=== PATIENT | male | born 1950 | race Caucasian/White ===

== ENCOUNTER 2016-09-16 16:28 | Emergency (ER) | payer BC, MEDICARE ==
[2016-09-16 16:36] VITALS: BP 138/80; PULSE 78; RESP 20; TEMP 98.1
--- NOTE | 2016-09-16 17:43 | ED ---
Skin/Abscess/FB HPI - General Chief complaint: Skin/Abscess/Foreign Body Stated complaint: Sores on Leg Time Seen by Provider: 09/16/16 17:31 Source: patient, RN notes reviewed Mode of arrival: ambulatory Limitations: no limitations - History of Present Illness Initial comments: 66-year-old male presents emergency Department with chief complaint of rashes right leg. Patient states started a few days ago. Patient states is slightly painful but states he noticed some sores in his right groin and on his right lower leg. Patient is never had any like this in the past. Denies any new soaps or lotions or detergents. Patient states he has not been taking anything for this. - Related Data Home Medications Medication Instructions Recorded Confirmed Metoprolol Succinate [Toprol XL] 25 mg PO BID 02/25/14 01/14/16 Theophylline 12 Hour [Collin-Dur] 300 mg PO BID 02/25/14 01/14/16 Tiotropium [place] [Spiriva] 1 cap INHALATION RT-DAILY 02/25/14 01/14/16 Albuterol Sulfate [Proair Hfa] 1 - 2 puff INHALATION RT-Q6H 01/06/16 01/14/16 Arformoterol Tartrate [Brovana] 15 mcg INHALATION RT-BID 01/14/16 01/14/16 Budesonide [Pulmicort] 0.5 mg INHALATION RT-BID 01/14/16 01/14/16 Docusate [Colace] 100 mg PO DAILY 01/14/16 01/14/16 Previous Rx's Medication Instructions Recorded valACYclovir HCL [Valtrex] 1,000 mg PO Q8HR #30 tab 09/16/16 Allergies Allergy/AdvReac Type Severity Reaction Status Date / Time No Known Allergies Allergy Verified 09/16/16 16:36 Review of Systems ROS Statement: Those systems with pertinent positive or pertinent negative responses have been documented in the HPI. ROS Other: All systems not noted in ROS Statement are negative. 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 Skin graft in the right buttock, right hand surgery in the past. Past Anesthesia/Blood Transfusion Reactions: No Reported Reaction Past Psychological History: No Psychological Hx Reported Smoking Status: Former smoker Past Alcohol Use History: None Reported Past Drug Use History: None Reported - Past Family History Father Family Medical History: Dementia Son(s) Family Medical History: No Reported History Mother Family Medical History: No Reported History General Exam Limitations: no limitations General appearance: alert, in no apparent distress Respiratory exam: Present: normal lung sounds bilaterally. Absent: respiratory distress, wheezes, rales, rhonchi, stridor Cardiovascular Exam: Present: regular rate, normal rhythm, normal heart sounds. Absent: systolic murmur, diastolic murmur, rubs, gallop, clicks Extremities exam: Present: other (Right leg there are erythematous vesicular papular regions noted in the right groin, right calf region following the dermatome consistent with herpes zoster) Course Vital Signs 09/16/16 16:34 Temperature 98.1 F Pulse Rate 78 Respiratory 20 Rate Blood Pressure 138/80 O2 Sat by Pulse 99 Oximetry Medical Decision Making - Medical Decision Making 66-year-old male present emergency department for rash to his right leg. Patient has shingles. Patient was started on Valtrex. Return parameters were discussed. Disposition Clinical Impression: Herpes zoster Disposition: HOME SELF-CARE Condition: Stable Instructions: Shingles (ED) Additional Instructions: Please return to the Emergency Department if symptoms worsen or any other concerns. Prescriptions: valACYclovir HCL [Valtrex] 1,000 mg PO Q8HR #30 tab Time of Disposition: 17:43
== END 2016-09-16 18:26 | disposition home or self-care (01) ==
LOC: EC 16:28
DX: B02.9 Zoster without complications (principal); I10 Essential (primary) hypertension; J45.909 Unspecified asthma, uncomplicated; J43.9 Emphysema, unspecified; Z87.891 Personal history of nicotine dependence; Z86.19 Personal history of other infectious and parasitic diseases; Z79.899 Other long term (current) drug therapy
CPT/HCPCS: 99282

== ENCOUNTER 2016-09-19 09:07 | Emergency (ER) | payer MEDICARE ==
[2016-09-19 09:50] VITALS: RESP 18
--- NOTE | 2016-09-19 10:08 | ED ---
General Adult HPI - General Chief complaint: Shortness of Breath Stated complaint: allergic reaction Time Seen by Provider: 09/19/16 09:44 Source: patient, RN notes reviewed Mode of arrival: ambulatory Limitations: no limitations - History of Present Illness Initial comments: Patient is a 66-year-old male presents to the emergency room for evaluation of general malaise. Patient states he was here on Saturday and diagnosed with shingles. Patient states he started taking Valcyclovir on Saturday. Patient states yesterday he began feeling fever-javan with chills, sore throat and productive cough. Patient states he is coughing up green phlegm. Patient does state he has a history of emphysema/asthma. Patient denies currently smoking. Patient denies chest pain or shortness of breath. Patient denies headache or dizziness. Patient denies abdominal pain. Patient denies nausea or vomiting. - Related Data Home Medications Medication Instructions Recorded Confirmed Metoprolol Succinate [Toprol XL] 25 mg PO BID 02/25/14 09/19/16 Tiotropium [place] [Spiriva] 1 cap INHALATION RT-DAILY 02/25/14 09/19/16 Albuterol Sulfate [Proair Hfa] 1 - 2 puff INHALATION RT-Q6H 01/06/16 09/19/16 Arformoterol Tartrate [Brovana] 15 mcg INHALATION RT-BID 01/14/16 09/19/16 Budesonide [Pulmicort] 0.5 mg INHALATION RT-BID 01/14/16 09/19/16 Docusate [Colace] 100 mg PO DAILY 01/14/16 09/19/16 Montelukast [Singulair] 10 mg PO HS 09/16/16 09/19/16 Previous Rx's Medication Instructions Recorded valACYclovir HCL [Valtrex] 1,000 mg PO Q8HR #30 tab 09/16/16 Allergies Allergy/AdvReac Type Severity Reaction Status Date / Time No Known Allergies Allergy Verified 09/19/16 09:51 Review of Systems ROS Statement: Those systems with pertinent positive or pertinent negative responses have been documented in the HPI. ROS Other: All systems not noted in ROS Statement are negative. 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 Skin graft in the right buttock, right hand surgery in the past. Past Anesthesia/Blood Transfusion Reactions: No Reported Reaction Past Psychological History: No Psychological Hx Reported Smoking Status: Former smoker Past Alcohol Use History: None Reported Past Drug Use History: None Reported - Past Family History Father Family Medical History: Dementia Son(s) Family Medical History: No Reported History Mother Family Medical History: No Reported History General Exam - General Exam Comments Initial Comments: Sitting in exam room, no acute distress. Limitations: no limitations General appearance: alert, in no apparent distress Head exam: Present: atraumatic, normocephalic, normal inspection Eye exam: Present: normal appearance ENT exam: Present: normal exam, normal oropharynx, mucous membranes moist, TM's normal bilaterally, normal external ear exam Neck exam: Present: normal inspection Respiratory exam: Present: normal lung sounds bilaterally. Absent: respiratory distress Cardiovascular Exam: Present: regular rate, normal rhythm, normal heart sounds GI/Abdominal exam: Present: soft, normal bowel sounds. Absent: distended, tenderness, guarding, rebound, rigid Extremities exam: Present: normal inspection Right Upper Leg exam: Absent: normal inspection (erythematous vesicular papular lesions over groin and calf area) Back exam: Present: normal inspection Neurological exam: Present: alert, oriented X3, CN II-XII intact, normal gait Psychiatric exam: Present: normal affect, normal mood Skin exam: Present: warm, dry, intact, normal color. Absent: rash Course Vital Signs 09/19/16 09/19/16 09/19/16 09:10 09:48 12:27 Temperature 98.2 F 98.4 F Pulse Rate 89 78 Respiratory 20 18 18 Rate Blood Pressure 108/58 110/68 O2 Sat by Pulse 98 99 Oximetry Medical Decision Making - Medical Decision Making Patient is a 66-year-old male presents emergency room for evaluation of cough and chills. Labs show no concerning findings. Chest x-ray negative for any acute findings. Influenza is negative. Advised patient to continue taking Tylenol and Motrin and to continue with Valcyclovir for treatment of Shingles. Patient states he understands everything that was discussed with him. Return parameters discussed. Case discussed with Dr. Avendaño. - Lab Data Result diagrams: 09/19/16 09:35 09/19/16 09:35 Lab Results 09/19/16 09/19/16 09/19/16 Range/Units 09:35 09:35 10:15 WBC 5.4 (3.8-10.6) k/uL RBC 4.76 (4.30-5.90) m/uL Hgb 15.0 (13.0-17.5) gm/dL Hct 45.5 (39.0-53.0) % MCV 95.5 (80.0-100.0) fL MCH 31.5 (25.0-35.0) pg MCHC 33.0 (31.0-37.0) g/dL RDW 13.6 (11.5-15.5) % Plt Count 137 L (150-450) k/uL Neutrophils % 72 % Lymphocytes % 14 % Monocytes % 10 % Eosinophils % 0 % Basophils % 1 % Neutrophils # 3.9 (1.3-7.7) k/uL Lymphocytes # 0.7 L (1.0-4.8) k/uL Monocytes # 0.5 (0-1.0) k/uL Eosinophils # 0.0 (0-0.7) k/uL Basophils # 0.0 (0-0.2) k/uL Sodium 139 (137-145) mmol/L Potassium 4.3 (3.5-5.1) mmol/L Chloride 101 (98-107) mmol/L Carbon Dioxide 26 (22-30) mmol/L Anion Gap 12 mmol/L BUN 17 (9-20) mg/dL Creatinine 0.65 L (0.66-1.25) mg/dL Est GFR (MDRD) Af Amer >60 (>60 ml/min/1.73 sqM) Est GFR (MDRD) Non-Af >60 (>60 ml/min/1.73 sqM) Glucose 94 (74-99) mg/dL Calcium 8.9 (8.4-10.2) mg/dL Total Bilirubin 1.2 (0.2-1.3) mg/dL AST 20 (17-59) U/L ALT 26 (21-72) U/L Alkaline Phosphatase 75 (38-126) U/L Total Protein 7.1 (6.3-8.2) g/dL Albumin 4.1 (3.5-5.0) g/dL Influenza Type A RNA Not Detected (Not Detectd) Influenza Type B (PCR) Not Detected (Not Detectd) - Radiology Data Radiology results: report reviewed, image reviewed Disposition Clinical Impression: Upper respiratory infection, Shingles Disposition: HOME SELF-CARE Condition: Good Instructions: Shingles (ED), Upper Respiratory Infection (ED) Additional Instructions: Continue with valacyclovir. Alternate Tylenol and Motrin as needed for fever/ discomfort. Please follow up with primary care provider in 24-48 hours for reevaluation. If any new symptom arises or symptoms worsen, return to ER as soon as possible. Referrals: Christine Escamilla MD [Primary Care Provider] - 1-2 days Time of Disposition: 12:09
[2016-09-19 10:46] LABS: ALT 26 U/L (21-72); AST 20 U/L (17-59); Alkaline Phosphatase 75 U/L (38-126); Anion Gap 12 mmol/L; Blood Urea Nitrogen 17 mg/dL (9-20); Calcium 8.9 mg/dL (8.4-10.2); Carbon Dioxide 26 mmol/L (22-30); Chloride 101 mmol/L (98-107); Glucose 94 mg/dL (74-99); Non-African American GFR(MDRD) >60 (>60 ml/min/1.73 sqM); Potassium 4.3 mmol/L (3.5-5.1); Sodium 139 mmol/L (137-145); Total Bilirubin 1.2 mg/dL (0.2-1.3); Total Protein 7.1 g/dL (6.3-8.2)
--- NOTE | 2016-09-19 10:52 | XR ---
EXAMINATION TYPE: XR chest 2V DATE OF EXAM: 09/19/2016 10:32 AM COMPARISON: 01/14/2016 HISTORY: Shortness of breath TECHNIQUE: Frontal and lateral views of the chest are obtained. FINDINGS: Scattered senescent parenchymal changes noted. Hyperinflation compatible with COPD. No evidence for infiltrate. No evidence for atelectasis. Heart size is stable. Mediastinal structures are stable and grossly unremarkable. No evidence for hilar prominence. Degenerative changes dorsal spine. IMPRESSION: 1. No evidence for acute pulmonary disease.
[2016-09-19 11:08] LABS: Basophils % (A) 1 %; CH 31.7; CHCM 33.4; Eosinophils % (A) 0 %; HCT 45.5 % (39.0-53.0); HDW 2.68; Luc # (Auto) 0.22; Luc % (Auto) 4; Lymphocytes # (A) 0.7 k/uL (1.0-4.8); Lymphocytes % (A) 14 %; MCH 31.5 pg (25.0-35.0); MCV 95.5 fL (80.0-100.0); Mean Platelet Volume 6.8; Monocytes # (A) 0.5 k/uL (0-1.0); Monocytes % (A) 10 %; Neutrophils # (A) 3.9 k/uL (1.3-7.7); Neutrophils % (A) 72 %; RBC 4.76 m/uL (4.30-5.90); RDW 13.6 % (11.5-15.5); WBC 5.4 k/uL (3.8-10.6); WBC (Perox) 5.79
[2016-09-19 12:29] VITALS: BP 110/68; PULSE 78; TEMP 98.4
== END 2016-09-19 12:27 | disposition home or self-care (01) ==
LOC: EC 09:07
DX: J06.9 Acute upper respiratory infection, unspecified (principal); B02.9 Zoster without complications; I10 Essential (primary) hypertension; J45.909 Unspecified asthma, uncomplicated; J43.9 Emphysema, unspecified; Z87.891 Personal history of nicotine dependence; Z79.51 Long term (current) use of inhaled steroids; Z79.899 Other long term (current) drug therapy; Z86.79 Personal history of other diseases of the circulatory system; Z98.890 Other specified postprocedural states
CPT/HCPCS: 36415; 71020; 80053; 85025; 87502; 99285

== ENCOUNTER 2016-10-03 07:20 | Emergency (ER) | payer BC, MEDICARE ==
--- NOTE | 2016-10-03 08:57 | ED ---
General Adult HPI - General Chief complaint: Recheck/Abnormal Lab/Rx Stated complaint: Shingles,congestion Time Seen by Provider: 10/03/16 08:12 Source: patient, RN notes reviewed Mode of arrival: ambulatory Limitations: no limitations - History of Present Illness Initial comments: Patient is 66-year-old male who presents emergency room today with a recheck. He states that he was diagnosed she was approximately 2 weeks ago did take Valtrex for this. States that the rash to the right inside of his leg has improved. States nontender. States some areas are scabbed over but appears to be doing well. Patient states that he was also diagnosed with a upper respiratory infection is had cough congestion over the last 2 weeks. Does admit that at times she's having sputum production. States he wanted to be rechecked for this as well. He does admit that the cough is somewhat improved. He denies any other complaints. Patient denies any recent fever, chills, shortness of breath, chest pain, back pain, abdominal pain, nausea or vomiting, numbness or tingling, dysuria or hematuria, constipation or diarrhea, headaches or visual changes, or any other complaints. - Related Data Home Medications Medication Instructions Recorded Confirmed Metoprolol Succinate [Toprol XL] 25 mg PO BID 02/25/14 10/03/16 Tiotropium [place] [Spiriva] 1 cap INHALATION RT-DAILY 02/25/14 10/03/16 Albuterol Sulfate [Proair Hfa] 1 - 2 puff INHALATION RT-Q6H 01/06/16 10/03/16 Arformoterol Tartrate [Brovana] 15 mcg INHALATION RT-BID 01/14/16 10/03/16 Budesonide [Pulmicort] 0.5 mg INHALATION RT-BID 01/14/16 10/03/16 Docusate [Colace] 100 mg PO DAILY 01/14/16 10/03/16 Montelukast [Singulair] 10 mg PO HS 09/16/16 10/03/16 Cephalexin [Keflex] 500 mg PO TID 10/03/16 10/03/16 Previous Rx's Medication Instructions Recorded guaiFENesin 400 mg PO Q4-6H #30 tablet 10/03/16 Allergies Allergy/AdvReac Type Severity Reaction Status Date / Time No Known Allergies Allergy Verified 10/03/16 08:38 Review of Systems ROS Statement: Those systems with pertinent positive or pertinent negative responses have been documented in the HPI. ROS Other: All systems not noted in ROS Statement are negative. 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 Skin graft in the right buttock, right hand surgery in the past. Past Anesthesia/Blood Transfusion Reactions: No Reported Reaction Past Psychological History: No Psychological Hx Reported Smoking Status: Former smoker Past Alcohol Use History: None Reported Past Drug Use History: None Reported - Past Family History Father Family Medical History: Dementia Son(s) Family Medical History: No Reported History Mother Family Medical History: No Reported History General Exam - General Exam Comments Initial Comments: General: The patient is awake and alert, in no distress, and does not appear acutely ill. Eye: Pupils are equal, round and reactive to light, extra-ocular movements are intact. No nystagmus. There is normal conjunctiva bilaterally. No signs of icterus. Ears, nose, mouth and throat: There are moist mucous membranes and no oral lesions. Neck: The neck is supple, there is no tenderness or JVD. Cardiovascular: There is a regular rate and rhythm. No murmur, rub or gallop is appreciated. Respiratory: Lungs are clear to auscultation, respirations are non-labored, breath sounds are equal. No wheezes, stridor, rales, or rhonchi. Gastrointestinal: Soft, non-distended, non-tender abdomen without masses or organomegaly noted. There is no rebound or guarding present. No CVA tenderness. Bowel sounds are unremarkable. Musculoskeletal: Normal ROM, no tenderness. Strength 5/5. Sensation intact. Pulses equal bilaterally 2+. Neurological: A&O x 3. CN II-XII intact, There are no obvious motor or sensory deficits. Coordination appears grossly intact. Speech is normal. Skin: Skin is warm and dry and no rashes or lesions are noted. Psychiatric: Cooperative, appropriate mood & affect, normal judgment. Limitations: no limitations Course Vital Signs 10/03/16 07:34 Temperature 98.1 F Pulse Rate 68 Respiratory 18 Rate Blood Pressure 121/70 O2 Sat by Pulse 97 Oximetry Medical Decision Making - Medical Decision Making Patient reexamined at this time shows no signs of distress. Chest x-ray is negative for any evidence of pneumonia. Patient will be given a prescription for guaifenesin for his cough and congestion. Advised follow-up with his family doctor. It was discussed about possible steroids at this time he has declined steroids. Patient will be discharged home and advised to return if any symptoms increase or worsen. Disposition Clinical Impression: Upper respiratory infection Disposition: HOME SELF-CARE Condition: Good Instructions: Upper Respiratory Infection (ED) Additional Instructions: Please use medication as discussed. Please follow-up with family doctor in the next 2 days of symptoms have not improved. Please return to emergency room if the symptoms increase or worsen or for any other concerns. Prescriptions: guaiFENesin 400 mg PO Q4-6H #30 tablet Time of Disposition: 09:43
--- NOTE | 2016-10-03 09:03 | XR ---
EXAMINATION TYPE: XR chest 2V DATE OF EXAM: 10/03/2016 8:54 AM COMPARISON: 09/19/2016 TECHNIQUE: PA and lateral views submitted. HISTORY: Cough FINDINGS: The lungs are clear and there is no pneumothorax, pleural effusion, or focal pneumonia. Hyperinflat ion noted. Biapical pleural thickening seen. Degenerative change of the spine. No overt failure. Stra ndy suprahilar density in the right is stable dating back to 2014. IMPRESSION: 1. No acute process. Correlate for COPD
[2016-10-03 10:03] VITALS: BP 119/74; PULSE 65; RESP 16; TEMP 97.5
== END 2016-10-03 10:07 | disposition home or self-care (01) ==
LOC: EC 07:20
DX: J06.9 Acute upper respiratory infection, unspecified (principal); J45.909 Unspecified asthma, uncomplicated; J43.9 Emphysema, unspecified; I10 Essential (primary) hypertension; Z87.891 Personal history of nicotine dependence; Z79.51 Long term (current) use of inhaled steroids; Z79.899 Other long term (current) drug therapy
CPT/HCPCS: 71020; 99283

== ENCOUNTER → 2017-07-02 | Outpatient (CLI) | payer MEDICARE ==
--- NOTE | 2017-07-02 16:08 | XR ---
EXAMINATION TYPE: XR chest 2V DATE OF EXAM: 07/02/2017 COMPARISON: Prior chest x-ray 10/03/2016 HISTORY: Shortness of breath, emphysema TECHNIQUE: Frontal and lateral views of the chest are obtained on 3 images. FINDINGS: There is no pleural effusion or pneumothorax seen. Difficult to exclude basilar airspace d isease. The cardiac silhouette size is within normal limits. Aorta is dense and tortuous. Apical pleu ral thickening is noted. Emphysematous changes are noted, there is hyperinflation of the lungs. There is an underlying scoliosis. Surgical clips superimposed over the right upper chest as on prior. The osseous structures are intact. IMPRESSION: Emphysema. Difficult to exclude pneumonia. Follow-up suggested.
== END ==
LOC: RADXRMAIN 13:36
PROVIDERS: ATTEND Internal Medicine Pulmonary Disease
DX: J43.9 Emphysema, unspecified (principal)
CPT/HCPCS: 71046

== ENCOUNTER → 2017-07-26 | Outpatient (CLI) | payer MEDICARE ==
[2017-07-26 08:58] LABS: Blood Urea Nitrogen 22 mg/dL (9-20)
--- NOTE | 2017-07-26 10:55 | CT ---
EXAMINATION TYPE: CT chest w con DATE OF EXAM: 07/26/2017 COMPARISON: 03/10/2015 HISTORY: Patient complains of pneumonia, SOB, and displays unproductive cough. CT DLP: 209.2 mGycm, Automated exposure control for dose reduction was used. CONTRAST: Performed injected with 100 mL of Omnipaque 300. TECHNIQUE: Axial images were obtained at 5 mm thick sections. Reconstructed images are reviewed on [employer] computer in the coronal plane. FINDINGS: Portion of the thyroid visualized is normal. A 0.9 cm right supraclavicular lymph node may be present. Extensive emphysematous changes are present at the lung apices. Some scarring in the left posterior l hugh apex appears stable. Some scarring within the anterior right upper lobe is stable. No suspicious nodular densities are evident. No significant interval changes evident within the lung fitzgerald. No enlarged mediastinal or hilar adenopathy is evident. The ascending aorta diameter at the level o f the main pulmonary artery is 3.7 cm. The main pulmonary artery diameter at the bifurcation is 2.5 cm. Aortic arch and its posterior aspect is transverse dimension of 3.[address] sections are obtained through the upper abdomen. There is some fusiform prominence of the distal most visualized abdominal aorta measuring 2.7 cm in AP dimension. Vascular calcifications with in the aorta. Upper abdomen is otherwise unremarkable. Scoliosis is present. Degenerative disc changes in the lower thoracic spine are evident. IMPRESSIONS: 1. Extensive emphysematous change, similar to 2015. 2. No acute pulmonary process. 3. Aortic ectasia discussed above thoracic aorta and proximal abdominal aorta within the [id number]-mg-[id number] w.
== END | disposition home or self-care (01) ==
LOC: RADCTMAIN 08:19
PROVIDERS: ATTEND Nurse Practitioner Family
DX: J43.9 Emphysema, unspecified (principal); I77.819 Aortic ectasia, unspecified site
CPT/HCPCS: 82565; 84520; 71260; 36415; Q9967

== ENCOUNTER → 2017-08-03 | Outpatient (CLI) | payer MEDICARE ==
[2017-08-03 07:59] LABS: Appearance,Urine Clear (Clear); Bilirubin,Urine Negative (Negative); Blood,Urine Negative (Negative); Color,Urine Yellow; Glucose,Urine (UA) Negative (Negative); Ketones,Urine Negative (Negative); Leukocyte Esterase,Urine Negative (Negative); Nitrite,Urine Negative (Negative); Protein,Urine Trace (Negative); Specific Gravity,Urine 1.022 (1.001-1.035)
[2017-08-03 08:00] LABS: Basophils # (A) 0.1 k/uL (0-0.2); Basophils % (A) 1 %; Eosinophils # (A) 0.1 k/uL (0-0.7); Eosinophils % (A) 1 %; HCT 51.4 % (39.0-53.0); HGB 16.3 gm/dL (13.0-17.5); Lymphocytes # (A) 0.4 k/uL (1.0-4.8); Lymphocytes % (A) 4 %; MCH 31.4 pg (25.0-35.0); MCHC 31.8 g/dL (31.0-37.0); MCV 98.9 fL (80.0-100.0); Mean Platelet Volume 7.2; Monocytes # (A) 0.3 k/uL (0-1.0); Monocytes % (A) 3 %; Neutrophils # (A) 8.5 k/uL (1.3-7.7); Neutrophils % (A) 91 %; Platelet Count 173 k/uL (150-450); WBC 9.4 k/uL (3.8-10.6)
[2017-08-03 11:05] LABS: ALT 30 U/L (21-72); AST 30 U/L (17-59); Alkaline Phosphatase 88 U/L (38-126); Anion Gap 14 mmol/L; Blood Urea Nitrogen 16 mg/dL (9-20); Calcium 9.8 mg/dL (8.4-10.2); Carbon Dioxide 26 mmol/L (22-30); Chloride 102 mmol/L (98-107); Cholesterol 212 mg/dL (<200); Glucose 114 mg/dL (74-99); HDL Cholesterol 69 mg/dL (40-60); LDL Cholesterol,Calculated 130 mg/dL (0-99); Potassium 4.8 mmol/L (3.5-5.1); Sodium 142 mmol/L (137-145); Total Bilirubin 0.9 mg/dL (0.2-1.3); Total Protein 7.3 g/dL (6.3-8.2); Triglycerides 66 mg/dL (<150)
[2017-08-03 11:10] LABS: Vitamin D 25 Hydroxy 8.7 ng/mL (30.0-100.0)
[2017-08-03 11:17] LABS: Albumin 4.5 g/dL (3.5-5.0)
[2017-08-03 11:21] LABS: T4, Free (Free Thyroxine) 1.14 ng/dL (0.78-2.19)
[2017-08-03 11:35] LABS: Prostate Specific Antigen 0.63 ng/mL (0.00-4.00)
[2017-08-03 13:47] LABS: Hemoglobin A1C 5.7 % (4.0-6.0)
== END | disposition home or self-care (01) ==
LOC: LABWHC1 07:26
PROVIDERS: ATTEND Family Medicine
DX: Z00.00 Encounter for general adult medical examination without abnormal findings (principal); E11.36 Type 2 diabetes mellitus with diabetic cataract
CPT/HCPCS: 36415; 80053; 80061; 81003; 82043; 82306; 82570; 82607; 83036; 84153; 84439; 84443; 85025

== ENCOUNTER → 2017-09-06 | Outpatient (CLI) | payer MEDICARE ==
--- NOTE | 2017-09-06 20:25 | ECHOF ---
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 This was a technically good study. The left ventricular size is normal. There is borderline concentric left ventricular hypertrophy. Overall left ventricular systolic function is normal with, an EF between 55 - 60 %. The right ventricle is normal in size and function. Normal LA size by volume 22+/-6 ml/m2. RA appears enlarged. Aortic valve is trileaflet and is mildly thickened. There is no evidence of aortic regurgitation. There is no evidence of aortic stenosis. The mitral valve leaflets are mildly thickened. There is trace to mild mitral regurgitation. Mild tricuspid regurgitation present. Right ventricular systolic pressure is normal at < 35 mmHg. There is no evidence of pulmonary hypertension. The pulmonic valve was not well visualized. The aortic root size is normal. Normal inferior vena cava with normal inspiratory collapse consistent with estimated right atrial pre ssure of 5 mmHg. There is a small pericardial effusion is located near the right ventricle. CONCLUSIONS -------- 1. Sinus rhythm. 2. This was a technically good study. 3. The left ventricular size is normal. 4. There is borderline concentric left ventricular hypertrophy. 5. Overall left ventricular systolic function is normal with, an EF between 55 - 60 %. 6. Normal LA size by volume 22+/-6 ml/m2. 7. RA appears enlarged. 8. Aortic valve is trileaflet and is mildly thickened. 9. The mitral valve leaflets are mildly thickened. 10. There is trace to mild mitral regurgitation. 11. Mild tricuspid regurgitation present. 12. Right ventricular systolic pressure is normal at < 35 mmHg. 13. There is no evidence of pulmonary hypertension. 14. The pulmonic valve was not well visualized. 15. The aortic root size is normal. 16. There is a small pericardial effusion is located near the right ventricle. SENIOR SOFTWARE MANAGER: Ever Coronel RDCS
== END | disposition home or self-care (01) ==
LOC: RADECHMAIN 16:16
PROVIDERS: ATTEND Family Medicine
DX: I08.3 Combined rheumatic disorders of mitral, aortic and tricuspid valves (principal); I27.21 Secondary pulmonary arterial hypertension
CPT/HCPCS: 93306

== ENCOUNTER 2017-09-29 08:46 | Emergency (ER) | payer MEDICARE ==
[2017-09-29 08:50] VITALS: BP 171/91; PULSE 78; RESP 20; TEMP 98
[2017-09-29] MEDS ORDERED: MAGNESIUM CITRATE 296 ML BOTTLE PO ONE (09:00)
--- NOTE | 2017-09-29 09:07 | ED ---
General Adult HPI - General Chief complaint: Abdominal Pain Stated complaint: Constipated Time Seen by Provider: 09/29/17 08:52 Source: patient, RN notes reviewed Mode of arrival: ambulatory Limitations: no limitations - History of Present Illness Initial comments: Patient 67-year-old male presenting to the emergency room with a chief complaint of constipation. Patient states that he had a bowel movement yesterday was feeling fine. Woke up this morning unable have bowel movement. States that he did give himself a fleets enema and has still not had any relief. Denies any abdominal pain. He admits that he just feels pressure like he has to go to the bathroom. Patient does admit he was able to urinate approximately 20 minutes ago without difficulty. Patient denies any other complaints or symptoms. He states he has suffered from constipation in the past but is been some time. Patient denies any other complaints currently. Patient denies any recent fever, chills, shortness of breath, chest pain, back pain, abdominal pain, nausea or vomiting, numbness or tingling, dysuria or hematuria, diarrhea, headaches or visual changes, or any other complaints. - Related Data Home Medications Medication Instructions Recorded Confirmed Metoprolol Succinate [Toprol XL] 25 mg PO BID 02/25/14 10/03/16 Tiotropium [place] [Spiriva] 1 cap INHALATION RT-DAILY 02/25/14 10/03/16 Albuterol Sulfate [Proair Hfa] 1 - 2 puff INHALATION RT-Q6H 01/06/16 10/03/16 Arformoterol Tartrate [Brovana] 15 mcg INHALATION RT-BID 01/14/16 10/03/16 Budesonide [Pulmicort] 0.5 mg INHALATION RT-BID 01/14/16 10/03/16 Docusate [Colace] 100 mg PO DAILY 01/14/16 10/03/16 Montelukast [Singulair] 10 mg PO HS 09/16/16 10/03/16 Cephalexin [Keflex] 500 mg PO TID 10/03/16 10/03/16 Previous Rx's Medication Instructions Recorded guaiFENesin 400 mg PO Q4-6H #30 tablet 10/03/16 Allergies Allergy/AdvReac Type Severity Reaction Status Date / Time No Known Allergies Allergy Verified 09/29/17 08:50 Review of Systems ROS Statement: Those systems with pertinent positive or pertinent negative responses have been documented in the HPI. ROS Other: All systems not noted in ROS Statement are negative. 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 Skin graft in the right buttock, right hand surgery in the past. Past Anesthesia/Blood Transfusion Reactions: No Reported Reaction Past Psychological History: No Psychological Hx Reported Smoking Status: Former smoker Past Alcohol Use History: None Reported Past Drug Use History: None Reported - Past Family History Father Family Medical History: Dementia Son(s) Family Medical History: No Reported History Mother Family Medical History: No Reported History General Exam - General Exam Comments Initial Comments: General: The patient is awake and alert, in no distress, and does not appear acutely ill. Eye: Pupils are equal, round and reactive to light, extra-ocular movements are intact. No nystagmus. There is normal conjunctiva bilaterally. No signs of icterus. Ears, nose, mouth and throat: There are moist mucous membranes and no oral lesions. Neck: The neck is supple, there is no tenderness or JVD. Cardiovascular: There is a regular rate and rhythm. No murmur, rub or gallop is appreciated. Respiratory: Lungs are clear to auscultation, respirations are non-labored, breath sounds are equal. No wheezes, stridor, rales, or rhonchi. Gastrointestinal: Soft, non-distended, non-tender abdomen without masses or organomegaly noted. There is no rebound or guarding present. No CVA tenderness. Musculoskeletal: Normal ROM, no tenderness. Strength 5/5. Sensation intact. Pulses equal bilaterally 2+. Neurological: A&O x 3. CN II-XII intact, There are no obvious motor or sensory deficits. Coordination appears grossly intact. Speech is normal. Skin: Skin is warm and dry and no rashes or lesions are noted. Psychiatric: Cooperative, appropriate mood & affect, normal judgment. Limitations: no limitations Course Vital Signs 09/29/17 08:48 Temperature 98.0 F Pulse Rate 78 Respiratory 20 Rate Blood Pressure 171/91 O2 Sat by Pulse 96 Oximetry - Reevaluation(s) Reevaluation #1: 09/29/17 09:07 It was discussed with patient about further testing with labs and urinalysis along with an x-ray. Patient has declined all these. He states he does not feel that these are necessary. He states he feels that he just needs an enema. He is refusing any other testing at this time. Medical Decision Making - Medical Decision Making 67-year-old male presenting for constipation. Patient refused any other testing. Patient was given enema and was able have large bowel movement. States feeling much better at this time. Patient discharged home. Disposition Clinical Impression: Constipation Disposition: HOME SELF-CARE Condition: Good Instructions: Constipation (ED) Additional Instructions: Please follow-up with family doctor in the next 2 days of symptoms have not improved. Please return to emergency room if the symptoms increase or worsen or for any other concerns. Referrals: Christine Escamilla MD [Primary Care Provider] - 1-2 days Time of Disposition: 09:51
== END 2017-09-29 09:59 | disposition home or self-care (01) ==
LOC: EC 08:46
DX: K59.00 Constipation, unspecified (principal); J44.9 Chronic obstructive pulmonary disease, unspecified; I10 Essential (primary) hypertension; Z95.5 Presence of coronary angioplasty implant and graft; Z79.51 Long term (current) use of inhaled steroids; Z79.899 Other long term (current) drug therapy; Z87.891 Personal history of nicotine dependence
CPT/HCPCS: 99283

== ENCOUNTER → 2017-10-08 | Outpatient (CLI) | payer MEDICARE | END | disposition home or self-care (01) | LOC: LABWHC1 16:27 | PROVIDERS: ATTEND Family Medicine | DX: R05 Cough (principal) | CPT/HCPCS: 87070; 87205 ==

== ENCOUNTER → 2017-11-04 | Outpatient (CLI) | payer MEDICARE ==
[~2017-11-04] MED LIST: REGADENOSON 0.4 MG/5 ML SYRINGE IV ONE
--- NOTE | 2017-11-04 10:49 | NM ---
EXAMINATION TYPE: NM stress lexiscan cardiolite DATE OF EXAM: 11/04/2017 COMPARISON: NONE HISTORY: TECHNIQUE: After the intravenous administration of 10.29 mCi Tc 99m Sestamibi - Cardiolite resting S PECT images acquired 45 minutes post injection. The patient received 0.4mg Lexiscan, 25.9 mCi Tc 99m Sestamibi - Stress images obtained [address] injection FINDINGS: Review of stress and rest SPECT images demonstrates no distinct perfusion abnormality. Gated analysi s shows normal wall motion with an estimated left ventricular ejection fraction of 61 %. IMPRESSION: No scintigraphic evidence for reversible ischemia.
--- NOTE | 2017-11-04 11:09 | EST ---
EXERCISE STRESS DATE OF SERVICE: 11/04/2017 AGE: 67 SEX: M HT: 73" WT: 150 PROTOCOL: Lexiscan Cardiolite Stress Test HEART RATE REST: 59 BLOOD PRESSURE REST: 119/70 MAXIMUM HEART RATE ACHIEVED: 79 MAXIMUM BLOOD PRESSURE: 119/70 85% MPHR: 132 100% MPHR: 153 INDICATIONS: Chest pain. CLINICAL INFORMATION: Baseline rhythm is a sinus mechanism, rate 59, normal axis, RSR prime. Baseline blood pressure 119/70 mmHg. Patient received and injection of Lexiscan. Electrocardiograph monitoring revealed occasional PVCs. There was no evidence of diagnostic ischemic ST deviation. Cardiolite was injected per protocol. CONCLUSION: 1. Nondiagnostic electrocardiogram stress testing. 2. Nuclear images will be reported separately. MMODL / IJN: [id number] /
== END | disposition home or self-care (01) ==
LOC: RADNMMAIN 07:57
PROVIDERS: ATTEND Family Medicine
DX: R07.9 Chest pain, unspecified (principal)
CPT/HCPCS: 93017; 78452; A9500; J2785

== ENCOUNTER → 2017-12-17 | Outpatient (CLI) | payer MEDICARE ==
[2017-12-17 07:36] LABS: Basophils % (A) 1 %; Eosinophils # (A) 0.2 k/uL (0-0.7); Eosinophils % (A) 3 %; HCT 53.7 % (39.0-53.0); HGB 17.4 gm/dL (13.0-17.5); Lymphocytes # (A) 1.6 k/uL (1.0-4.8); Lymphocytes % (A) 25 %; MCH 31.6 pg (25.0-35.0); MCHC 32.4 g/dL (31.0-37.0); MCV 97.7 fL (80.0-100.0); Mean Platelet Volume 6.5; Monocytes # (A) 0.5 k/uL (0-1.0); Monocytes % (A) 8 %; Neutrophils # (A) 3.8 k/uL (1.3-7.7); Neutrophils % (A) 62 %; Platelet Count 176 k/uL (150-450); RBC 5.49 m/uL (4.30-5.90); RDW 13.6 % (11.5-15.5); WBC 6.2 k/uL (3.8-10.6)
[2017-12-17 07:47] LABS: ALT 40 U/L (21-72); AST 38 U/L (17-59); Albumin 4.8 g/dL (3.5-5.0); Alkaline Phosphatase 69 U/L (38-126); Anion Gap 13 mmol/L; Blood Urea Nitrogen 21 mg/dL (9-20); Calcium 9.6 mg/dL (8.4-10.2); Carbon Dioxide 29 mmol/L (22-30); Chloride 101 mmol/L (98-107); Cholesterol 174 mg/dL (<200); Creatine Kinase 106 U/L (55-170); Glucose 84 mg/dL (74-99); HDL Cholesterol 68 mg/dL (40-60); LDL Cholesterol,Calculated 91 mg/dL (0-99); Magnesium 2.1 mg/dL (1.6-2.3); Sodium 143 mmol/L (137-145); Total Bilirubin 0.6 mg/dL (0.2-1.3); Total Protein 7.5 g/dL (6.3-8.2); Triglycerides 73 mg/dL (<150); Uric Acid 6.3 mg/dL (3.5-8.5)
[2017-12-17 08:02] LABS: T4, Free (Free Thyroxine) 0.87 ng/dL (0.78-2.19)
[2017-12-17 08:28] LABS: Potassium 4.9 mmol/L (3.5-5.1)
[2017-12-17 11:43] LABS: Alpha Fetoprotein, Tumor Mkr <2.5 ng/mL (0.0-7.9); Hemoglobin A1C 5.4 % (4.0-6.0)
[2017-12-17 12:12] LABS: Hepatitis C IgG Antibody Reactive (Non-Reactive)
== END | disposition home or self-care (01) ==
LOC: LABWHC1 06:50
PROVIDERS: ATTEND Family Medicine
DX: E11.36 Type 2 diabetes mellitus with diabetic cataract (principal); I27.21 Secondary pulmonary arterial hypertension; B19.20 Unspecified viral hepatitis C without hepatic coma; J44.9 Chronic obstructive pulmonary disease, unspecified
CPT/HCPCS: 36415; 80053; 80061; 82105; 82378; 82550; 82607; 83036; 83735; 83880; 84439; 84443; 84550; 85025; 86803

== ENCOUNTER → 2017-12-18 | Outpatient (CLI) | payer MEDICARE ==
[2017-12-19 14:46] LABS: HCV Quant Log <1.08 (<1.08); HCV Quantitative Result <12 IU/mL (<12)
== END ==
LOC: LABWHC1 14:14
PROVIDERS: ATTEND Family Medicine
DX: B19.20 Unspecified viral hepatitis C without hepatic coma (principal)
CPT/HCPCS: 36415; 87522

== ENCOUNTER → 2018-03-14 | Outpatient (CLI) | payer MEDICARE ==
--- NOTE | 2018-03-15 07:44 | ECHOF ---
Referral Reason:I31.3 Pericardial effusion (noninflammatory) MEASUREMENTS -------- HEIGHT: 185.4 cm WEIGHT: 67.6 kg BP: RVIDd: 3.1 cm (< 3.3) IVSd: 1.0 cm (0.6 - 1.1) LVIDd: 3.4 cm (3.9 - 5.3) LVPWd: 1.0 cm (0.6 - 1.1) IVSs: 1.3 cm LVIDs: 2.4 cm LVPWs: 1.3 cm LAESV Index (A-L): 19.58 ml/m Ao Diam: 3.3 cm (2.0 - 3.7) AV Cusp: 1.9 cm (1.5 - 2.6) LA Diam: 3.2 cm (2.7 - 3.8) MV EXCURSION: 13.362 mm (> 18.000) MV EF SLOPE: 28 mm/s (70 - 150) EPSS: 0.4 cm MV E Darrell: 0.64 m/s MV DecT: 216 ms MV A Darrell: 0.83 m/s MV E/A Ratio: 0.77 RAP: 5.00 mmHg RVSP: 25.41 mmHg FINDINGS -------- Sinus rhythm. This was a technically adequate study. The left ventricular size is normal. Left ventricular wall thickness is normal. Overall left vent ricular systolic function is normal with, an EF between 55 - 60 %. The right ventricle is mildly enlarged. Normal LA size by volume 22+/-6 ml/m2. RA appears enlarged. Aortic valve is trileaflet and is mildly thickened. There is no evidence of aortic regurgitation. There is no evidence of aortic stenosis. The mitral valve leaflets are mildly thickened. There is trace to mild mitral regurgitation. Trace tricuspid regurgitation present. Right ventricular systolic pressure is normal at < 35 mmHg. There is no evidence of pulmonary hypertension. The pulmonic valve was not well visualized. The aortic root size is normal. Normal inferior vena cava with normal inspiratory collapse consistent with estimated right atrial pre ssure of 5 mmHg. There is no pericardial effusion. CONCLUSIONS -------- 1. Sinus rhythm. 2. This was a technically adequate study. 3. The left ventricular size is normal. 4. Left ventricular wall thickness is normal. 5. Overall left ventricular systolic function is normal with, an EF between 55 - 60 %. 6. The right ventricle is mildly enlarged. 7. Normal LA size by volume 22+/-6 ml/m2. 8. RA appears enlarged. 9. Aortic valve is trileaflet and is mildly thickened. 10. The mitral valve leaflets are mildly thickened. 11. There is trace to mild mitral regurgitation. 12. Trace tricuspid regurgitation present. 13. Right ventricular systolic pressure is normal at < 35 mmHg. 14. There is no evidence of pulmonary hypertension. 15. The pulmonic valve was not well visualized. 16. The aortic root size is normal. 17. There is no pericardial effusion. NOVELTY TWISTER TENDER: Ever Ibarra RDCS
== END | disposition home or self-care (01) ==
LOC: RADECHMAIN 16:13
PROVIDERS: ATTEND Family Medicine
DX: I08.0 Rheumatic disorders of both mitral and aortic valves (principal)
CPT/HCPCS: 93306

== ENCOUNTER → 2018-05-01 | Outpatient (CLI) | payer MEDICARE ==
[2018-05-01 08:23] LABS: Basophils # (A) 0.1 k/uL (0-0.2); Basophils % (A) 1 %; Eosinophils # (A) 0.2 k/uL (0-0.7); Eosinophils % (A) 2 %; HCT 49.4 % (39.0-53.0); HGB 15.8 gm/dL (13.0-17.5); Lymphocytes # (A) 1.5 k/uL (1.0-4.8); Lymphocytes % (A) 21 %; MCH 32.2 pg (25.0-35.0); MCHC 31.9 g/dL (31.0-37.0); MCV 100.9 fL (80.0-100.0); Macrocytosis Slight; Mean Platelet Volume 6.4; Monocytes # (A) 0.5 k/uL (0-1.0); Monocytes % (A) 7 %; Neutrophils # (A) 4.7 k/uL (1.3-7.7); Neutrophils % (A) 67 %; Platelet Count 180 k/uL (150-450); WBC 7.1 k/uL (3.8-10.6)
[2018-05-01 08:33] LABS: Appearance,Urine Clear (Clear); Bilirubin,Urine Negative (Negative); Blood,Urine Negative (Negative); Color,Urine Yellow; Glucose,Urine (UA) Negative (Negative); Ketones,Urine Negative (Negative); Leukocyte Esterase,Urine Negative (Negative); Nitrite,Urine Negative (Negative); Protein,Urine Negative (Negative); Specific Gravity,Urine 1.012 (1.001-1.035); Urobilinogen,Urine <2.0 mg/dL (<2.0)
[2018-05-01 11:05] LABS: Albumin 4.4 g/dL (3.80-4.90); Albumin/Globulin Ratio 2.59 (1.20-2.10); Anion Gap 10.4 mmol/L (4.00-12.00); Calcium 9.7 mg/dL (8.7-10.3); Carbon Dioxide 26.6 mmol/L (21.6-31.8); Globulin 1.7 g/dL (2.1-3.7); Potassium 4.4 mmol/L (3.5-5.5); Total Bilirubin 0.4 mg/dL (0.2-1.2); Total Protein 6.1 g/dL (6.2-8.2)
[2018-05-01 11:13] LABS: Vitamin D 25 Hydroxy 48.6 ng/mL (30.0-100.0)
[2018-05-01 11:14] LABS: T4, Free (Free Thyroxine) 1.2 ng/dL (0.80-1.80)
== END ==
LOC: LABWHC1 07:15
PROVIDERS: ATTEND Family Medicine
DX: E11.36 Type 2 diabetes mellitus with diabetic cataract (principal); B37.81 Candidal esophagitis; J44.9 Chronic obstructive pulmonary disease, unspecified; E78.5 Hyperlipidemia, unspecified
CPT/HCPCS: 36415; 80053; 80061; 81003; 82043; 82306; 82570; 82607; 84153; 84439; 84443; 85025

== ENCOUNTER → 2018-05-26 | Outpatient (CLI) | payer MEDICARE ==
--- NOTE | 2018-05-26 16:40 | XR ---
EXAMINATION TYPE: XR chest 2V DATE OF EXAM: 05/26/2018 COMPARISON: Prior chest x-ray 07/02/2017 HISTORY: Asthma, cough and congestion TECHNIQUE: Frontal and lateral views of the chest are obtained. FINDINGS: Prominent lung volumes suggest underlying COPD, apical lucency compatible with emphysema, there is apical pleural thickening. The aorta is dense and tortuous. Cardiac mediastinal silhouette, pulmonary vascularity and sean are stable. Some interstitial densities at the lung bases are again no chandler. Basilar density is noted more conspicuous on the lateral exam but stable. IMPRESSION: No acute cardiopulmonary process. If pneumonia is suspected then CT chest may be of bene fit.
== END ==
LOC: RADXRMAIN 14:54
PROVIDERS: ATTEND Family Medicine
DX: J45.909 Unspecified asthma, uncomplicated (principal)
CPT/HCPCS: 71046

== ENCOUNTER → 2018-06-05 | Outpatient (CLI) | payer MEDICARE ==
[2018-06-05 08:39] LABS: Blood Urea Nitrogen 20 mg/dL (9-20)
--- NOTE | 2018-06-05 10:52 | CT ---
CT CHEST FOR PULMONARY EMBOLISM. EXAMINATION TYPE: CT angio chest DATE OF EXAM: 06/05/2018 INDICATION: Severe persistent asthma CT DLP: 478 mGycm, Automated exposure control for dose reduction was used. CONTRAST: Patient injected with 100 ml mL of Isovue 370. COMPARISON: 07/26/2017 TECHNIQUE: CT of the chest is performed on a spiral scan at 2 mm thick sections. Study is performed with intravenous contrast timed for evaluation for pulmonary embolism. This will limit additional po rtions of the evaluation. 3-D MIP images reconstructed by the technologist are reviewed on the compu ter in the coronal and sagittal planes. FINDINGS: No persistent filling defects are evident to suggest an acute pulmonary embolism. No mediastinal or hilar adenopathy enlarged by CT criteria is evident. The ascending aorta diameter at the level of the main pulmonary artery is 3.8 cm. The main pulmonary artery diameter at the bifur cation is 2.1 cm. The proximal posterior aortic arch is slightly prominent 3.4 cm versus 2.8 cm the m ain aorta. This is stable from comparison. Some scarring is at the apices. Extensive bilateral emphysematous changes are present. Limited CT section through the upper abdomen are unremarkable. IMPRESSIONS: 1. No acute pulmonary embolism. 2. Extensive emphysematous changes. 3. Mild prominence proximal descending thoracic aorta.
== END | disposition home or self-care (01) ==
LOC: RADCTMAIN 07:10
PROVIDERS: ATTEND Family Medicine
DX: J43.9 Emphysema, unspecified (principal)
CPT/HCPCS: 82565; 84520; 71275; Q9967

== ENCOUNTER → 2018-08-06 | Outpatient (CLI) | payer MEDICARE ==
[2018-08-06 08:00] LABS: Basophils # (A) 0.1 k/uL (0-0.2); Basophils % (A) 1 %; Eosinophils # (A) 0.2 k/uL (0-0.7); Eosinophils % (A) 5 %; HCT 51.4 % (39.0-53.0); HGB 16.8 gm/dL (13.0-17.5); Lymphocytes # (A) 0.7 k/uL (1.0-4.8); Lymphocytes % (A) 15 %; MCH 32.9 pg (25.0-35.0); MCHC 32.7 g/dL (31.0-37.0); MCV 100.5 fL (80.0-100.0); Macrocytosis Slight; Monocytes # (A) 0.6 k/uL (0-1.0); Monocytes % (A) 13 %; Neutrophils # (A) 3.1 k/uL (1.3-7.7); Neutrophils % (A) 63 %; Platelet Count 166 k/uL (150-450); RBC 5.11 m/uL (4.30-5.90); RDW 13.7 % (11.5-15.5); WBC 4.9 k/uL (3.8-10.6)
[2018-08-06 11:30] LABS: Albumin 4.7 g/dL (3.80-4.90); Albumin/Globulin Ratio 2.61 (1.60-3.17); Calcium 9.8 mg/dL (8.7-10.3); Globulin 1.8 g/dL (1.6-3.3); LDL Cholesterol,Calculated 78.6 mg/dL (0.0-131.0); Potassium 4.5 mmol/L (3.5-5.5); Total Bilirubin 0.7 mg/dL (0.3-1.2); Total Protein 6.5 g/dL (6.2-8.2); Uric Acid 7.7 mg/dL (3.7-8.7); VLDL Calculation 10.4 mg/dL (5.00-40.00)
[2018-08-06 15:17] LABS: Hemoglobin A1C 5.7 % (4.0-6.0)
== END | disposition home or self-care (01) ==
LOC: LABWHC1 07:04
PROVIDERS: ATTEND Family Medicine
DX: Z00.01 Encounter for general adult medical examination with abnormal findings (principal); E78.5 Hyperlipidemia, unspecified; J45.41 Moderate persistent asthma with (acute) exacerbation; E11.69 Type 2 diabetes mellitus with other specified complication; I10 Essential (primary) hypertension
CPT/HCPCS: 36415; 80053; 80061; 83036; 84439; 84443; 84550; 85025

== ENCOUNTER 2018-12-06 09:19 | Emergency (ER) | payer MEDICARE ==
[2018-12-06 09:23] VITALS: TEMP 97.8
[2018-12-06] MEDS ORDERED: IPRATROPIUM-ALBUTEROL 3 ML NEB INHALATION STA (09:31)
[2018-12-06 09:45] VITALS: RESP 22
--- NOTE | 2018-12-06 09:47 | XR ---
EXAMINATION TYPE: XR chest 2V DATE OF EXAM: 12/06/2018 HISTORY: cough. REFERENCE: Previous study dated 05/26/2018. FINDINGS: The lungs are overinflated but clear. Pleural spaces are clear. Heart size is normal. IMPRESSION: COPD.
[2018-12-06 09:59] VITALS: PULSE 68
[2018-12-06] MEDS ORDERED: predniSONE 50 MG TAB PO STA (10:28)
[2018-12-06 10:33] VITALS: BP 128/83
[2018-12-06] MEDS ORDERED: predniSONE 20 MG TAB PO STA (10:36)
--- NOTE | 2018-12-06 10:37 | ED ---
General Adult HPI - General Chief complaint: Upper Respiratory Infection Stated complaint: Cough/lung pain Time Seen by Provider: 12/06/18 09:23 Source: patient, RN notes reviewed Mode of arrival: ambulatory Limitations: no limitations - History of Present Illness Initial comments: This is a 68-year-old male with a history of COPD and emphysema states he's had a cough with yellow phlegm he has some exertional dyspnea. He's been using his medications home without much good results. He states he did see his doctor alert and awake was started on 40 mg prednisone daily this is not really help the. He denies any chest pain he has had some rhinorrhea some sore throat he is not on any antibiotics currently. Is no other complaints at this time denies any palpitations. - Related Data Home Medications Medication Instructions Recorded Confirmed Metoprolol Succinate [Toprol XL] 25 mg PO BID 02/25/14 10/03/16 Tiotropium [place] [Spiriva] 1 cap INHALATION RT-DAILY 02/25/14 10/03/16 Albuterol Sulfate [Proair Hfa] 1 - 2 puff INHALATION RT-Q6H 01/06/16 10/03/16 Arformoterol Tartrate [Brovana] 15 mcg INHALATION RT-BID 01/14/16 10/03/16 Budesonide [Pulmicort] 0.5 mg INHALATION RT-BID 01/14/16 10/03/16 Docusate [Colace] 100 mg PO DAILY 01/14/16 10/03/16 Montelukast [Singulair] 10 mg PO HS 09/16/16 10/03/16 Cephalexin [Keflex] 500 mg PO TID 10/03/16 10/03/16 Previous Rx's Medication Instructions Recorded guaiFENesin 400 mg PO Q4-6H #30 tablet 10/03/16 Doxycycline [Vibramycin] 100 mg PO BID #20 cap 12/06/18 Allergies Allergy/AdvReac Type Severity Reaction Status Date / Time No Known Allergies Allergy Verified 12/06/18 09:23 Review of Systems ROS Statement: Those systems with pertinent positive or pertinent negative responses have been documented in the HPI. ROS Other: All systems not noted in ROS Statement are negative. 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 Skin graft in the right buttock, right hand surgery in the past. Past Anesthesia/Blood Transfusion Reactions: No Reported Reaction Past Psychological History: No Psychological Hx Reported Smoking Status: Former smoker Past Alcohol Use History: None Reported Past Drug Use History: None Reported - Past Family History Father Family Medical History: Dementia Son(s) Family Medical History: No Reported History Mother Family Medical History: No Reported History General Exam - General Exam Comments Initial Comments: This is a well-developed well-nourished awake alert oriented times 3 male Limitations: no limitations General appearance: alert, in no apparent distress Head exam: Present: atraumatic, normocephalic, normal inspection Eye exam: Present: normal appearance, PERRL, EOMI. Absent: scleral icterus, conjunctival injection, periorbital swelling ENT exam: Present: normal exam, mucous membranes moist Neck exam: Present: normal inspection. Absent: tenderness, meningismus, lymphadenopathy Respiratory exam: Present: wheezes, decreased breath sounds. Absent: respiratory distress, rales, rhonchi, stridor Cardiovascular Exam: Present: regular rate, normal rhythm, normal heart sounds. Absent: systolic murmur, diastolic murmur, rubs, gallop, clicks GI/Abdominal exam: Present: soft, normal bowel sounds. Absent: distended, tenderness, guarding, rebound, rigid Extremities exam: Present: normal inspection, full ROM, normal capillary refill. Absent: tenderness, pedal edema, joint swelling, calf tenderness Back exam: Present: normal inspection Neurological exam: Present: alert, oriented X3, CN II-XII intact Psychiatric exam: Present: normal affect, normal mood Skin exam: Present: warm, dry, intact, normal color. Absent: rash Course Vital Signs 12/06/18 12/06/18 12/06/18 09:21 09:32 09:34 Temperature 97.8 F Pulse Rate 66 Respiratory 18 22 22 Rate Blood Pressure 123/82 123/76 O2 Sat by Pulse 100 99 Oximetry 12/06/18 12/06/18 09:49 09:58 Temperature Pulse Rate 70 68 Respiratory Rate Blood Pressure O2 Sat by Pulse Oximetry Medical Decision Making - Medical Decision Making Patient had some minimal relief with the updraft was rendered. He'll be discharged with continuation of his current medications as well as an antibiotic to be admitted he does have all his breathing medication at home is a follow-up with his doctor early next week today being Saturday. He is also return when necessary - Radiology Data Radiology results: report reviewed (I did review the imaging and report no evidence of acute findings patient does demonstrate on x-ray COPD stigmata.), image reviewed Disposition Clinical Impression: COPD with exacerbation, Tracheobronchitis, Upper respiratory infection Disposition: HOME SELF-CARE Condition: Good Instructions (If sedation given, give patient instructions): Upper Respiratory Infection (ED), Acute Bronchitis (ED), COPD (Chronic Obstructive Pulmonary Disease) (ED) Prescriptions: Doxycycline [Vibramycin] 100 mg PO BID #20 cap Is patient prescribed a controlled substance at d/c from ED?: No Referrals: Christine Escamilla MD [Primary Care Provider] - 1-2 days
== END 2018-12-06 10:57 | disposition home or self-care (01) ==
LOC: EC 09:19
DX: J44.1 Chronic obstructive pulmonary disease with (acute) exacerbation (principal); J40 Bronchitis, not specified as acute or chronic; J06.9 Acute upper respiratory infection, unspecified; I10 Essential (primary) hypertension; Z79.51 Long term (current) use of inhaled steroids; Z79.899 Other long term (current) drug therapy; Z87.891 Personal history of nicotine dependence; Z95.5 Presence of coronary angioplasty implant and graft
CPT/HCPCS: 94640; 71046; 99283; J7512

== ENCOUNTER → 2018-12-17 | Outpatient (CLI) | payer MEDICARE ==
[2018-12-17 07:23] LABS: Basophils % (A) 0 %; Eosinophils # (A) 0.1 k/uL (0-0.7); Eosinophils % (A) 1 %; HCT 48.6 % (39.0-53.0); HGB 16.1 gm/dL (13.0-17.5); Lymphocytes # (A) 0.6 k/uL (1.0-4.8); Lymphocytes % (A) 5 %; MCHC 33.2 g/dL (31.0-37.0); MCV 96.4 fL (80.0-100.0); Mean Platelet Volume 6.5; Monocytes # (A) 0.7 k/uL (0-1.0); Monocytes % (A) 5 %; Neutrophils # (A) 11.1 k/uL (1.3-7.7); Neutrophils % (A) 88 %; Platelet Count 203 k/uL (150-450); RBC 5.04 m/uL (4.30-5.90); RDW 13.3 % (11.5-15.5); WBC 12.6 k/uL (3.8-10.6)
[2018-12-17 14:15] LABS: Hemoglobin A1C 5.8 % (4.0-6.0)
[2018-12-17 14:16] LABS: ALT 32 U/L (10-49); AST 35 U/L (14-35); African American GFR (CKD) 130.9 (60.0-200.0); Albumin/Globulin Ratio 2.75 (1.60-3.17); Alkaline Phosphatase 88 U/L (41-126); Calcium 9.6 mg/dL (8.7-10.3); Carbon Dioxide 15.9 mmol/L (21.6-31.8); Chloride 108 mmol/L (96-109); Cholesterol 164 mg/dL (0-200); Globulin 1.6 g/dL (1.6-3.3); Glucose 99 mg/dL (70-110); Potassium 4.4 mmol/L (3.5-5.5); Sodium 139 mmol/L (135-145); Total Bilirubin 0.7 mg/dL (0.2-1.2); Triglycerides <50.0 mg/dL (0.0-149.0); VLDL Calculation 9.98 mg/dL (5.00-40.00)
== END | disposition home or self-care (01) ==
LOC: LABWHC1 06:35
PROVIDERS: ATTEND Family Medicine
DX: E03.9 Hypothyroidism, unspecified (principal); E11.9 Type 2 diabetes mellitus without complications; I73.9 Peripheral vascular disease, unspecified; I10 Essential (primary) hypertension; J45.41 Moderate persistent asthma with (acute) exacerbation; R06.02 Shortness of breath; B37.0 Candidal stomatitis
CPT/HCPCS: 36415; 80053; 80061; 82103; 83036; 84439; 84443; 85025; 85379

== ENCOUNTER → 2018-12-23 | Outpatient (CLI) | payer MEDICARE ==
--- NOTE | 2018-12-23 13:25 | NM ---
EXAMINATION TYPE: NM stress lexiscan cardiolite DATE OF EXAM: 12/23/2018 COMPARISON: Prior exam 11/04/2017 HISTORY: Shortness of breath TECHNIQUE: After the intravenous administration of 9.9 mCi Tc 99m Sestamibi - Cardiolite resting SPE CT images acquired 45 minutes post injection. The patient received 0.4mg Lexiscan, 25.5 mCi Tc 99m Sestamibi - Stress images obtained [address] injection FINDINGS: Review of stress and rest SPECT images demonstrates no distinct perfusion abnormality. Gated analysi s shows normal wall motion with an estimated left ventricular ejection fraction of 70 %. IMPRESSION: No scintigraphic evidence for reversible ischemia. Consider echocardiographic correlation for elevate d ejection fraction
--- NOTE | 2018-12-23 14:09 | EST ---
EXERCISE STRESS AGE: 68 SEX: M HT: 6'1" WT: 151 PROTOCOL: Lexiscan Cardiolite Stress Test HEART RATE REST: 64 BLOOD PRESSURE REST: 126/84 MAXIMUM HEART RATE ACHIEVED: 77 MAXIMUM BLOOD PRESSURE: 129/61 85% MPHR: 131 100% MPHR: 154. INDICATION: Short of breath. CLINICAL INFORMATION: A Lexiscan nuclear study was performed. Peak heart rate of 77 was achieved. Maximum blood pressure of 129/61 mmHg is noted. Resting EKG shows normal sinus rhythm with normal NC interval and QRS duration and normal ST-T waves. Occasional PVCs were noted in the resting phase. No ST-segment depression suggestive of ischemia is noted. The results of the nuclear study will follow. MMODL / IJN: [id number] /
== END | disposition home or self-care (01) ==
LOC: RADNMMAIN 07:34
PROVIDERS: ATTEND Family Medicine
DX: R06.02 Shortness of breath (principal)
CPT/HCPCS: 93017; 78452; A9500; J2785

== ENCOUNTER → 2019-01-15 | Outpatient (CLI) | payer MEDICARE ==
[2019-01-16 14:02] LABS: Alpha 1 Anti-Trypsin 124 mg/dL (90 - 200); Alpha-1-Antitrypsin Phenotype MS
== END | disposition home or self-care (01) ==
LOC: LABWHC1 06:35
PROVIDERS: ATTEND Nurse Practitioner
DX: R05 Cough (principal); J84.10 Pulmonary fibrosis, unspecified; J45.50 Severe persistent asthma, uncomplicated
CPT/HCPCS: 36415; 80198; 82103; 82104; 82785; 86001; 86003; 86606; 86609

== ENCOUNTER → 2019-02-16 | Outpatient (CLI) | payer MEDICARE ==
[2019-02-16 09:17] LABS: HCT 50.8 % (39.0-53.0); HGB 16.8 gm/dL (13.0-17.5); MCH 32.5 pg (25.0-35.0); MCHC 33.1 g/dL (31.0-37.0); MCV 98.3 fL (80.0-100.0); Mean Platelet Volume 7.3; Platelet Count 208 k/uL (150-450); RBC 5.17 m/uL (4.30-5.90); RDW 14.8 % (11.5-15.5); WBC 11.7 k/uL (3.8-10.6)
[2019-02-16 09:39] LABS: African American GFR (CKD) >90 (>60 ml/min/1.73 sqM); Anion Gap 11 mmol/L; Blood Urea Nitrogen 20 mg/dL (9-20); Carbon Dioxide 25 mmol/L (22-30); Chloride 102 mmol/L (98-107); Potassium 4.7 mmol/L (3.5-5.1); Sodium 138 mmol/L (137-145)
== END | disposition home or self-care (01) ==
LOC: LABPRL 07:49
PROVIDERS: ATTEND Internal Medicine Cardiovascular Disease
DX: Z01.812 Encounter for preprocedural laboratory examination (principal); R06.02 Shortness of breath
CPT/HCPCS: 36415; 80051; 82565; 84520; 85027

== ENCOUNTER → 2019-04-21 | Outpatient (CLI) | payer MEDICARE ==
[2019-04-21 12:08] LABS: African American GFR (CKD) 121.4 (60.0-200.0); Albumin 4.3 g/dL (3.80-4.90); Albumin/Globulin Ratio 2.87 (1.60-3.17); Anion Gap 8.5 mmol/L (4.00-12.00); BUN/Creat Ratio 38.33 Ratio (12.00-20.00); Calcium 9.2 mg/dL (8.7-10.3); Carbon Dioxide 27.5 mmol/L (21.6-31.8); Chol/HDL Ratio 2.86; Globulin 1.5 g/dL (1.6-3.3); LDL Cholesterol,Calculated 91.8 mg/dL (0.0-131.0); Magnesium 1.8 mg/dL (1.5-2.4); Potassium 4.5 mmol/L (3.5-5.5); Total Bilirubin 0.7 mg/dL (0.3-1.2); Total Protein 5.8 g/dL (6.2-8.2); VLDL Calculation 14.2 mg/dL (5.00-40.00)
[2019-04-21 14:32] LABS: Hemoglobin A1C 5.5 % (4.0-6.0)
== END | disposition home or self-care (01) ==
LOC: LABWHC1 06:42
PROVIDERS: ATTEND Family Medicine
DX: E78.5 Hyperlipidemia, unspecified (principal); E11.36 Type 2 diabetes mellitus with diabetic cataract; R06.02 Shortness of breath
CPT/HCPCS: 36415; 80053; 80061; 82043; 82306; 82550; 82570; 82607; 83036; 83735; 83880; 84439; 84443; 85379

== ENCOUNTER → 2019-06-22 | Outpatient (CLI) | payer MEDICARE ==
[2019-06-23 11:26] LABS: Alt. alternata IgE Class CLASS 0; Alternaria alternata IgE <0.10 kU/L (<0.10); Asperg. fumagatus IgE <0.10 kU/L (<0.10); Asperg. fumagatus IgE Class CLASS 0; Bermuda Grass IgE <0.10 kU/L (<0.10); Birch(Com.Silvr) IgE <0.10 kU/L (<0.10); Birch(Com.Silvr) IgE Class CLASS 0; Cat Epith & Dander IgE <0.10 kU/L (<0.10); Cat Epith & Dander IgE Class CLASS 0; Clad herbarum IgE <0.10 kU/L (<0.10); Clad herbarum IgE Class CLASS 0; Cockroach IgE <0.10 kU/L (<0.10); Cottonwood IgE <0.10 kU/L (<0.10); Dermato. Pteronyssinus Class CLASS 0; Dermato. Pteronyssinus IgE <0.10 kU/L (<0.10); Dermato. farinae IgE <0.10 kU/L (<0.10); Dermato. farinae IgE Class CLASS 0; Dog Dander IgE <0.10 kU/L (<0.10); Elm IgE <0.10 kU/L (<0.10); IgE (Allergen) 12.9 IU/mL (<114.0); Maple (Box Elder) IgE <0.10 kU/L (<0.10); Maple (Box Elder) IgE Class CLASS 0; Mountain Cedar IgE <0.10 kU/L (<0.10); Mountain Cedar IgE Class CLASS 0; Mouse Urine IgE Class CLASS 0; Mouse Urine Proteins,IgE <0.10 kU/L (0.10); Nettle IgE <0.10 kU/L (<0.10); Nettle IgE Class CLASS 0; Oak IgE <0.10 kU/L (<0.10); Penicillium chrysogenum IgE <0.10 kU/L (<0.10); Penicillium chrysogenum IgE Cl CLASS 0; Rough Marshelder IgE <0.10 kU/L (<0.10); Rough Marshelder IgE Class CLASS 0; Timothy Grass IgE <0.10 kU/L (<0.10); White Ash IgE Class CLASS 0
== END | disposition home or self-care (01) ==
LOC: LABWHC1 12:49
PROVIDERS: ATTEND Internal Medicine Pulmonary Disease
DX: R06.2 Wheezing (principal); R05 Cough
CPT/HCPCS: 36415; 82785; 86003

== ENCOUNTER → 2019-06-22 | Outpatient (CLI) | payer MEDICARE ==
--- NOTE | 2019-06-22 13:56 | CT ---
EXAMINATION TYPE: CT chest wo con DATE OF EXAM: 06/22/2019 COMPARISON: CT chest June 05, 2018 and older study May 20, 2013 HISTORY: Lung fibrosis, personal hx of tobacco use CT DLP: 190.6 mGycm. Automated Exposure Control for Dose Reduction was Utilized. TECHNIQUE: CT scan of the thorax is performed without IV contrast. FINDINGS: LUNGS: Redemonstration of moderate to advanced underlying emphysematous change bilaterally with mild/ moderate scattered pulmonary fibrotic changes most prominent in the lung apices and bases. No pleural effusion or pneumothorax. No suspicious acute consolidation. No suspicious nodules or masses. MEDIASTINUM: Lack of IV contrast is noted to limit evaluation for mediastinal and especially hilar ad enopathy. There are no definitive greater than 1 cm hilar or mediastinal lymph nodes. Stable trace pe ricardial effusion is seen. At least moderate coronary artery calcification. No cardiomegaly. Ascendi ng aorta measures up to 3.9 cm diameter axial image 35 not significantly changed from most recent [place] or. OTHER: S-shaped scoliosis with prominent upper lumbar spine redemonstrated. Multilevel disc space kaiser rowing and vacuum disc phenomenon along with multilevel spurring all again seen. IMPRESSION: Moderate to advanced emphysematous change with scattered mild/moderate pulmonary fibrosis . No acute pulmonary process. Borderline ascending aortic aneurysm. No significant change from most r ecent CT.
== END | disposition home or self-care (01) ==
LOC: RADCTMAIN 12:35
PROVIDERS: ATTEND Internal Medicine Pulmonary Disease
DX: J43.9 Emphysema, unspecified (principal); I71.2 Thoracic aortic aneurysm, without rupture
CPT/HCPCS: 71250

== ENCOUNTER → 2019-07-27 | Outpatient (CLI) | payer MEDICARE ==
[2019-07-27 07:56] LABS: Basophils % (A) 1 %; Eosinophils % (A) 1 %; HCT 53.6 % (39.0-53.0); HGB 16.6 gm/dL (13.0-17.5); Lymphocytes # (A) 0.9 k/uL (1.0-4.8); Lymphocytes % (A) 19 %; MCH 30.5 pg (25.0-35.0); MCHC 31.1 g/dL (31.0-37.0); MCV 98.1 fL (80.0-100.0); Mean Platelet Volume 7.8; Monocytes # (A) 0.4 k/uL (0-1.0); Monocytes % (A) 8 %; Neutrophils # (A) 3.3 k/uL (1.3-7.7); Neutrophils % (A) 68 %; Platelet Count 169 k/uL (150-450); RBC 5.46 m/uL (4.30-5.90); RDW 12.9 % (11.5-15.5); WBC 4.9 k/uL (3.8-10.6)
[2019-07-27 17:30] LABS: African American GFR (CKD) 121.4 (60.0-200.0); Albumin 4.6 g/dL (3.80-4.90); Albumin/Globulin Ratio 3.07 (1.60-3.17); Anion Gap 7.2 mmol/L (4.00-12.00); BUN/Creat Ratio 36.67 Ratio (12.00-20.00); Calcium 9.5 mg/dL (8.7-10.3); Carbon Dioxide 24.8 mmol/L (21.6-31.8); Chol/HDL Ratio 2.6; Globulin 1.5 g/dL (1.6-3.3); LDL Cholesterol,Calculated 78.4 mg/dL (0.0-131.0); Magnesium 1.9 mg/dL (1.5-2.4); Non-African American GFR(CKD) 104.8 (60.0-200.0); Potassium 4.7 mmol/L (3.5-5.5); Total Bilirubin 0.5 mg/dL (0.3-1.2); Total Protein 6.1 g/dL (6.2-8.2); VLDL Calculation 12.6 mg/dL (5.00-40.00)
[2019-07-27 18:44] LABS: Hemoglobin A1C 5.4 % (4.0-6.0)
== END | disposition home or self-care (01) ==
LOC: LABWHC1 06:55
PROVIDERS: ATTEND Family Medicine
DX: Z00.00 Encounter for general adult medical examination without abnormal findings (principal); I10 Essential (primary) hypertension; E78.5 Hyperlipidemia, unspecified; E11.69 Type 2 diabetes mellitus with other specified complication; N40.0 Benign prostatic hyperplasia without lower urinary tract symptoms; R06.02 Shortness of breath; R06.00 Dyspnea, unspecified
CPT/HCPCS: 36415; 80053; 80061; 82550; 83036; 83735; 83880; 84153; 84443; 85025; 85379

== ENCOUNTER → 2020-10-17 | Outpatient (CLI) | payer BC ==
--- NOTE | 2020-10-17 15:54 | XR ---
EXAMINATION TYPE: XR chest 2V DATE OF EXAM: 10/17/2020 COMPARISON: Chest x-ray December 06, 2018. CT chest June 22, 2019. HISTORY: Blunt left-sided chest pain. TECHNIQUE: Frontal and lateral views of the chest are obtained. FINDINGS: There is chronic emphysematous and pulmonary fibrotic changes with left lateral upper lung irregular opacity favoring parenchymal scarring progression. Stable small to tiny right pleural thic kening. Intracardiac opacity lateral view consistent with parenchymal scarring unchanged from prior. The cardiac silhouette size remains within normal limits with atherosclerotic changes aortic knob. Sc oliosis redemonstrated. Advanced degenerative change right glenohumeral joint noted. IMPRESSION: Chronic changes without new suspicious acute pulmonary process.
== END | disposition home or self-care (01) ==
LOC: RADXRMAIN 15:29
PROVIDERS: ATTEND Nurse Practitioner Gerontology
DX: R06.02 Shortness of breath (principal)
CPT/HCPCS: 71046

== ENCOUNTER → 2021-04-19 | Outpatient (CLI) | payer MEDICARE ==
--- NOTE | 2021-04-19 11:11 | CT ---
EXAMINATION TYPE: CT chest wo con DATE OF EXAM: 04/19/2021 COMPARISON: 06/22/2019 HISTORY: COPD CT DLP: [address] of the chest was performed with lung and mediastinal window settings submitted. The la ck of contrast limits evaluation of the vascular, mediastinal and parenchymal structures including th e upper abdomen. LUNGS: The lungs are clear and free of infiltrate. No atelectasis. There is a new mass left apical re gion measuring 3.4 x 1.8 cm. While this could reflect an area of scarring cannot exclude malignancy. PET/CT is advised. No additional nodules or masses seen. Severe emphysematous changes noted. No pleur al effusion. No CT evidence of interstitial lung disease. MEDIASTINUM/MIRANDA: Thoracic aorta is of normal caliber with limited evaluation given lack of contrast . The heart is not enlarged. No evidence for mediastinal mass. No lymph nodes greater than 1cm. UPPER ABDOMEN: No significant abnormality is seen. OTHER: No significant other abnormality. IMPRESSION: 1. There is a new mass left apical region measuring 3.4 x 1.8 cm. While this could reflect an area o f scarring cannot exclude malignancy. PET/CT is advised.
== END | disposition home or self-care (01) ==
LOC: RADCTMAIN 10:31
PROVIDERS: ATTEND Internal Medicine Pulmonary Disease
DX: J44.9 Chronic obstructive pulmonary disease, unspecified (principal)
CPT/HCPCS: 71250

== ENCOUNTER → 2021-04-26 | Outpatient (CLI) | payer MEDICARE ==
[2021-04-27 14:01] LABS: Microalbumin Creatinine Ratio <30 mg/g Creat (0-30); Urine Creatinine 69.2 mg/dL (39.0-259.0)
== END | disposition home or self-care (01) ==
LOC: LABWHC1 15:25
PROVIDERS: ATTEND Family Medicine
DX: Z20.822 Contact with and (suspected) exposure to COVID-19 (principal); E11.40 Type 2 diabetes mellitus with diabetic neuropathy, unspecified; B19.20 Unspecified viral hepatitis C without hepatic coma; E78.5 Hyperlipidemia, unspecified; N40.0 Benign prostatic hyperplasia without lower urinary tract symptoms; J44.9 Chronic obstructive pulmonary disease, unspecified
CPT/HCPCS: 81001; 82043; 82570; 87635

== ENCOUNTER → 2021-05-10 | Outpatient (CLI) | payer MEDICARE ==
[2021-05-10 19:44] LABS: INR 1.02 (0.90-1.11); Prothrombin Time 11.2 sec (9.9-11.9)
[2021-05-10 21:42] LABS: Basophils # (A) 0.04 X 10*3/uL (0.00-0.10); Basophils % (A) 0.6 %; Eosinophils # (A) 0 X 10*3/uL (0.04-0.35); Eosinophils % (A) 0 %; HCT 48.3 % (39.6-50.0); HGB 15.2 g/dL (13.0-17.0); Lymphocytes # (A) 0.95 X 10*3/uL (0.90-5.00); Lymphocytes % (A) 13.8 %; MCH 30.7 pg (27.0-32.0); MCHC 31.5 g/dL (32.0-37.0); MCV 97.6 fL (80.0-97.0); Mean Platelet Volume 9.7 fL (9.5-12.2); Monocytes # (A) 0.69 X 10*3/uL (0.20-1.00); Neutrophils # (A) 5.17 X 10*3/uL (1.80-7.70); Platelet Count 208 X 10*3/uL (140-440); RBC 4.95 X 10*6/uL (4.40-5.60); RDW 14.1 % (11.5-14.5); WBC 6.89 X 10*3/uL (4.50-10.00)
[2021-05-11 01:05] LABS: Carcinoembryonic Antigen 1.2 ng/mL (0.0-4.9); Hepatitis C IgG Antibody Reactive (Nonreactive)
[2021-05-11 01:18] LABS: African American GFR (CKD) 120.7 (60.0-200.0); Albumin 4.5 g/dL (3.8-4.9); Albumin/Globulin Ratio 1.96 (1.60-3.17); Anion Gap 14.3 mmol/L (4.00-12.00); BUN/Creat Ratio 27.04 Ratio (12.00-20.00); Blood Urea Nitrogen 15.9 mg/dL (9.0-27.0); Calcium 9.1 mg/dL (8.7-10.3); Carbon Dioxide 21.3 mmol/L (21.6-31.8); Chol/HDL Ratio 2.84 Ratio; Globulin 2.3 g/dL (1.6-3.3); HDL Cholesterol 55.7 mg/dL (40.00-60.00); Non-African American GFR(CKD) 104.2 (60.0-200.0); Potassium 4.1 mmol/L (3.5-5.5); Prostate Specific Antigen 0.3 ng/mL (0.00-4.50); T4, Free (Free Thyroxine) 1.26 ng/dL (0.800-1.800); Total Bilirubin 0.5 mg/dL (0.30-1.20); Total Protein 6.8 g/dL (6.2-8.2); Triglycerides 49.6 mg/dL (0.00-149.00); VLDL Calculation 9.92 mg/dL (5.00-40.00)
[2021-05-11 04:48] LABS: Alpha Fetoprotein, Tumor Mkr <1.82 ng/mL (0.00-7.90)
[2021-05-11 14:25] LABS: LDL Cholesterol,Direct Reflex 89.9 mg/dL (0.00-129.00)
== END | disposition home or self-care (01) ==
LOC: LABWHC1 13:16
PROVIDERS: ATTEND Family Medicine
DX: E11.40 Type 2 diabetes mellitus with diabetic neuropathy, unspecified (principal); E78.5 Hyperlipidemia, unspecified; N40.0 Benign prostatic hyperplasia without lower urinary tract symptoms; B19.20 Unspecified viral hepatitis C without hepatic coma; J44.9 Chronic obstructive pulmonary disease, unspecified
CPT/HCPCS: 36415; 80053; 80061; 82105; 82306; 82378; 82607; 83036; 83721; 84153; 84439; 84443; 85025; 85610; 86803; 87522

== ENCOUNTER → 2021-07-14 | Outpatient (CLI) | payer MEDICARE ==
--- NOTE | 2021-07-14 15:32 | PE ---
EXAMINATION TYPE: PET CT fusion skull to thigh DATE OF EXAM: 07/14/2021 COMPARISON: Chest CT April 19, 2021 and older CTs. HISTORY: Solitary pulmonary nodule, abnormal CT TECHNIQUE: Following the intravenous administration of 12.78 mCi of F-18 FDG, whole body images are performed from the skull base to the midthigh. Images are reviewed on the computer in the coronal, a xial, and sagittal planes. Reconstructed rotating images are created on independent workstation and reviewed on the computer. A localization and attenuation correction CT is performed in conjunction with the PET scan. Blood glucose level equals 100 SCAN: Initial Scan FINDINGS: SKULL BASE AND NECK: No areas of abnormal hypermetabolic uptake. CHEST, MEDIASTINUM, AND HILAR REGION: Background moderate underlying emphysematous change greatest in upper lungs is redemonstrated. There is persistent 3.1 x 1.5 cm left upper lung nodule or nodular co nsolidation axial image 63 but it is ametabolic. Adjacent areas of scarring are redemonstrated and mo re prominent from older studies. No areas of abnormal hypermetabolic uptake. ABDOMEN AND PELVIS: No areas of abnormal hypermetabolic uptake. Normal excretion. No adrenal masses. OSSEOUS STRUCTURES: No areas of abnormal hypermetabolic uptake. OTHER CT: Nasal septum slightly deviated to left of midline. Mild to moderate calcified plaque left g reater than right carotid bulbs. There is 4.0 cm ascending aortic aneurysm axial image 103. There is moderate coronary artery calcification. There is levoconvex scoliosis centered at L1 level. There is atherosclerotic and ectatic abdominal ao rta with distal 3.3 cm AAA axial image 178. Scattered bilateral pelvic phleboliths. Nonobstructing 3 mm right calculus axial image 174. IMPRESSION: 1. No abnormal hypermetabolic uptake to suggest malignancy. Area of concern left upper lung remains p resent could reflect nodular scarring is more prominent from older studies. Repeat CT in 6 months michael e is advised to reassess or confirm stability. 2. Note is made of 3.3 cm AAA.
== END | disposition home or self-care (01) ==
LOC: RADXRMAIN 08:12
PROVIDERS: ATTEND Family Medicine
DX: I71.4 Abdominal aortic aneurysm, without rupture (principal)
CPT/HCPCS: 78815; A9552

== ENCOUNTER → 2021-10-17 | Outpatient (CLI) | payer MEDICARE ==
[2021-10-17 20:30] LABS: African American GFR (CKD) 114.1 (60.0-200.0); Albumin 4.8 g/dL (3.8-4.9); Albumin/Globulin Ratio 2.17 (1.60-3.17); Anion Gap 13.2 mmol/L (10.00-18.00); BUN/Creat Ratio 26.2 Ratio (12.00-20.00); Blood Urea Nitrogen 17.4 mg/dL (9.0-27.0); Calcium 9.5 mg/dL (8.7-10.3); Carbon Dioxide 23.7 mmol/L (20.0-27.5); Globulin 2.2 g/dL (1.6-3.3); Non-African American GFR(CKD) 98.4 (60.0-200.0); Potassium 4.5 mmol/L (3.5-5.5); T4, Free (Free Thyroxine) 1.24 ng/dL (0.800-1.800); Total Bilirubin 1.1 mg/dL (0.30-1.20)
[2021-10-17 20:59] LABS: Basophils # (A) 0.04 X 10*3/uL (0.00-0.10); Basophils % (A) 0.6 %; Eosinophils # (A) 0 X 10*3/uL (0.04-0.35); Eosinophils % (A) 0 %; HCT 51.3 % (39.6-50.0); HGB 16.7 g/dL (13.0-17.0); Immature Grans, Automated 0.4 %; Lymphocytes # (A) 1.05 X 10*3/uL (0.90-5.00); Lymphocytes % (A) 14.5 %; MCH 32.4 pg (27.0-32.0); MCHC 32.6 g/dL (32.0-37.0); MCV 99.6 fL (80.0-97.0); Monocytes # (A) 0.77 X 10*3/uL (0.20-1.00); Monocytes % (A) 10.7 %; NRBC Per 100 WBC 0 /100 WBCS (0.0-0.0); Neutrophils # (A) 5.34 X 10*3/uL (1.80-7.70); Neutrophils % (A) 73.8 %; Platelet Count 181 X 10*3/uL (140-440); RBC 5.15 X 10*6/uL (4.40-5.60); RDW 13.6 % (11.5-14.5); WBC 7.23 X 10*3/uL (4.50-10.00)
== END | disposition home or self-care (01) ==
LOC: LABWHC1 13:19
PROVIDERS: ATTEND Family Medicine
DX: E11.9 Type 2 diabetes mellitus without complications (principal); I10 Essential (primary) hypertension
CPT/HCPCS: 36415; 80053; 82550; 82607; 83036; 84439; 84443; 85025

== ENCOUNTER → 2022-07-23 | Outpatient (CLI) | payer MEDICARE ==
[2022-07-23 18:39] LABS: Basophils # (A) 0.05 X 10*3/uL (0.00-0.10); Basophils % (A) 0.9 %; Eosinophils # (A) 0.02 X 10*3/uL (0.04-0.35); Eosinophils % (A) 0.4 %; HCT 50.8 % (39.6-50.0); HGB 16.3 g/dL (13.0-17.0); Immature Grans, Automated 0.4 %; Lymphocytes # (A) 1.05 X 10*3/uL (0.90-5.00); Lymphocytes % (A) 18.7 %; MCH 31.1 pg (27.0-32.0); MCHC 32.1 g/dL (32.0-37.0); MCV 96.9 fL (80.0-97.0); Mean Platelet Volume 9.8 fL (9.5-12.2); Monocytes # (A) 0.59 X 10*3/uL (0.20-1.00); Monocytes % (A) 10.5 %; NRBC Per 100 WBC 0 /100 WBCS (0.0-0.0); Neutrophils % (A) 69.1 %; Platelet Count 157 X 10*3/uL (140-440); RBC 5.24 X 10*6/uL (4.40-5.60); RDW 13.4 % (11.5-14.5); WBC 5.63 X 10*3/uL (4.50-10.00)
[2022-07-23 20:06] LABS: African American GFR (CKD) 107.3 (60.0-200.0); Albumin 4.8 g/dL (3.8-4.9); Albumin/Globulin Ratio 2.07 (1.60-3.17); Anion Gap 17.8 mmol/L (10.00-18.00); BUN/Creat Ratio 25.81 Ratio (12.00-20.00); Blood Urea Nitrogen 19.9 mg/dL (9.0-27.0); Calcium 9.6 mg/dL (8.7-10.3); Carbon Dioxide 19.6 mmol/L (20.0-27.5); Globulin 2.3 g/dL (1.6-3.3); Non-African American GFR(CKD) 92.5 (60.0-200.0); Potassium 4.9 mmol/L (3.5-5.5); Total Bilirubin 0.5 mg/dL (0.30-1.20); Total Protein 7.1 g/dL (6.2-8.2)
== END | disposition home or self-care (01) ==
LOC: LABWHC1 11:44
PROVIDERS: ATTEND Family Medicine
DX: E11.9 Type 2 diabetes mellitus without complications (principal); B19.20 Unspecified viral hepatitis C without hepatic coma
CPT/HCPCS: 36415; 80053; 82043; 82105; 82570; 83036; 84443; 85025

== ENCOUNTER → 2023-01-09 | Outpatient (CLI) | payer MEDICARE ==
[2023-01-09 11:52] LABS: African American GFR (CKD) >90 (>60 ml/min/1.73 sqM); Blood Urea Nitrogen 26 mg/dL (9-20); Non-African American GFR(CKD) >90 (>60 ml/min/1.73 sqM)
--- NOTE | 2023-01-09 22:02 | CT ---
EXAMINATION TYPE: CT chest w con DATE OF EXAM: 01/09/2023 COMPARISON: 07/14/2021, 04/19/2021 HISTORY: 72-year-old male R91.8, lung nodule TECHNIQUE: Contiguous axial scanning of the chest after the administration of 100 mL of Isovue 300. Coronal/sagittal reconstructions performed. CT DLP: 228.4mGycm. Automatic exposure control utilized for a dose reduction. FINDINGS: The heart is normal size without pericardial effusion. LAD and RCA coronary calcifications are presen t in the remarkable for coronary artery disease. Ectatic aortic root at 3.9 cm in mild aneurysm ascending aorta 4.0 cm. Mildly aneurysmal upper descen ding thoracic aorta 3.7 cm. There is mild atherosclerotic arch calcifications and conventional arch v essel branching anatomy. Large caliber to the main right and left pulmonary arteries measuring up to 2.7 cm suggesting underly ing pulmonary arterial hypertension. No thoracic lymphadenopathy by CT size criteria. There is advanced emphysematous change with loose disease at the upper lungs and some at the base of the lungs as well. Strandy scarring scattered throughout. Biapical pleural parenchymal scarring and s cattered areas of additional pleural parenchymal scarring. Masslike thickening left apex measures 3.7 x 1.4 cm versus 3.4 x 1.6 cm, previously. Very slight increase in width may have occurred, possibly related to some progressive scarring. Consider annual surveillance follow-up. Visualized upper abdomen shows no gross abnormality. Bones: Marked levoconvex scoliosis centered along the upper lumbar spine. Moderate to advanced degene rative disc disease mid to lower thoracic spine. IMPRESSION: 1. Advanced bullous emphysema. Scattered areas of pleural parenchymal scarring are redemonstrated. Th e masslike area of opacity at the left apex may be minimally wider at 3.7 cm versus 3.4 cm, previousl y. Overall similar. Recommend annual surveillance follow-up. 2. Mild aneurysm ascending aorta 4.0 cm and upper descending thoracic aorta 3.7 cm. 3. Pulmonary arterial hypertension. 4. Underlying marked scoliosis.
== END | disposition home or self-care (01) ==
LOC: RADCTMAIN 11:00
PROVIDERS: ATTEND Family Medicine
DX: J43.9 Emphysema, unspecified (principal); I27.21 Secondary pulmonary arterial hypertension; I71.21 Aneurysm of the ascending aorta, without rupture; I71.23 Aneurysm of the descending thoracic aorta, without rupture; R91.8 Other nonspecific abnormal finding of lung field
CPT/HCPCS: 82565; 84520; 71260; 36415; Q9967

== ENCOUNTER → 2023-07-09 | Outpatient (CLI) | payer MEDICARE ==
--- NOTE | 2023-07-09 11:10 | CT ---
EXAMINATION TYPE: CT angio chest DATE OF EXAM: 07/09/2023 COMPARISON: 01/09/2023 HISTORY: 72-year-old male shortness of breath, elevated d dimer, SOB TECHNIQUE: Contiguous axial scanning of the chest after the administration of 100 mL of Isovue 370. Coronal/sagittal MIP reconstructions performed. CT DLP: 525mGycm. Automatic exposure control utilized for a dose reduction. FINDINGS: Heart normal size without pericardial effusion. LAD and RCA coronary artery calcifications are presen t. Borderline ectatic aortic root at 3.7 cm. Mild atherosclerotic calcifications throughout the aortic a rch and descending thoracic aorta. Possible moderate to severe atherosclerotic narrowing proximal lef t subclavian artery. Satisfactory opacification of the pulmonary arterial system. No thoracic lymphadenopathy by CT size criteria. Strandy scarring at the lung bases. Advanced emphysematous change upper lungs. Biapical pleural paren chymal scarring. Focal soft tissue parenchymal thickening left apex measuring 3.7 x 1.3 cm, not signi ficantly changed. No consolidation or pleural effusion seen. Visualized upper abdomen shows no gross abnormality. Levoconvex scoliosis thoracolumbar junction. Accentuated mid thoracic kyphosis. System without eviden ce for pulmonary embolus. IMPRESSION : 1. No evidence for pulmonary embolus. 2. COPD with advanced emphysema and stable scattered scarring. More masslike area of probable scarrin g measuring 2.7 x 1.3 cm at the left apex remains unchanged as well. 3. Possible moderate or severe proximal left subclavian artery stenosis.
== END | disposition home or self-care (01) ==
LOC: RADCTMAIN 09:59
PROVIDERS: ATTEND Family Medicine
DX: J44.9 Chronic obstructive pulmonary disease, unspecified (principal); J43.9 Emphysema, unspecified
CPT/HCPCS: 71275; Q9967

== ENCOUNTER → 2025-01-15 | Outpatient (CLI) | payer MEDICARE ==
--- NOTE | 2025-01-17 18:42 | CT ---
EXAMINATION TYPE: CT chest wo con DATE OF EXAM: 01/15/2025 9:13 AM COMPARISON: 08/07/2024, 01/09/2023 CLINICAL INDICATION: Male, 74 years old with history of R91.1 SOLITARY PULMONARY NODULE; [facility] TECHNIQUE: CT of the chest without IV contrast. Coronal and sagittal reconstructions performed. CT DLP: 324 mGycm, Automated exposure control for dose reduction was used. FINDINGS: Heart normal size without pericardial effusion. LAD and RCA coronary artery calcifications are presen t. Mild aortic valve calcifications. Ectatic ascending aorta 2.8 cm. Mild/moderate atherosclerotic calcifications aortic arch. Ectatic upp er descending thoracic aorta 3.4 cm. Ectatic lower descending thoracic aorta is 2.9 cm. Suspect severe atherosclerotic stenoses at the origin of both left and right subclavian arteries, ref erred to axial image 13. No thoracic lymphadenopathy by CT size criteria. Redemonstrated is advanced emphysematous change with scattered areas of pleural-parenchymal scarring, most severe at the left greater than right apices. At the left apex, there is redemonstrated 3.9 x 1 .3 cm area of thickened scarring which remains unchanged back to 01/08/2023. No consolidation or pleural effusion. Otherwise, no suspicious pulmonary nodules are seen. Visualized upper abdomen shows no gross abnormality. Severe degenerative change right shoulder. There is a degenerated S-shaped scoliotic curvature lower thoracolumbar spine. Degenerative grade 1 anterolisthesis C7-T1, T11-T12, T12-L1. IMPRESSION: 1. 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 Consider ongoing follow-up annually or every 2 years as a precautio nary measure. 2. COPD with advanced emphysema and additional scattered pleural parenchymal scarring. 3. Suspect severe atherosclerotic stenoses at the origin of the bilateral subclavian arteries. 4. Prominent LAD and RCA coronary artery calcifications. [facility], , 01/17/2025 6:40 PM
== END | disposition home or self-care (01) ==
LOC: RADCTMAIN 08:58
PROVIDERS: ATTEND Family Medicine
DX: R91.1 Solitary pulmonary nodule (principal); J43.9 Emphysema, unspecified; I25.10 Atherosclerotic heart disease of native coronary artery without angina pectoris
CPT/HCPCS: 71250